=== PATIENT | female | born 1995 | race Two or more races ===

== ENCOUNTER 2016-12-29 20:26 | Emergency (ER) | payer MEDICAID ==
[~2016-12-29] VITALS: Ht 157.5 cm; Wt 67.5 kg
[2016-12-29 20:57] LABS: HEMATOCRIT 39.3 % (34.6-47.8); HEMOGLOBIN 13.4 g/dL (11.7-16.4); WHITE BLOOD COUNT 7.5 x10^3/uL (4.5-13.2)
[2016-12-29] MEDS ORDERED: SODIUM CHLORIDE 0.9% 1,000ML IVBOLUS ONE (21:00)
[2016-12-29] MEDS ORDERED: ONDANSETRON 2MG/ML, 2ML IVPush ONE (21:00)
[2016-12-29] MEDS ORDERED: SODIUM CHLORIDE FLUSH 10ML SYR IVF ONE (21:00)
[2016-12-29 21:07] LABS: ASPARTATE AMINO TRANSFERASE 12 U/L (15-37); BLOOD UREA NITROGEN 5 mg/dL (7-18)
[2016-12-29] MEDS ORDERED: ONDANSETRON 2MG/ML, 2ML ONE (21:09)
[2016-12-29 21:22] VITALS: BP 101/54
== END 2016-12-29 22:13 | disposition home or self-care (01) ==
LOC: ED 22:05
DX: Z3A.16 16 weeks gestation of pregnancy (principal); R10.13 Epigastric pain; O23.42 Unspecified infection of urinary tract in pregnancy, second trimester; N30.00 Acute cystitis without hematuria
CPT/HCPCS: 36415; 76801; 80053; 81001; 83690; 84702; 85025; 87086; 96361; 96374; 99285; J2405; J7030